=== PATIENT | male | born 1975 | race Caucasian/White ===

== ENCOUNTER 2022-05-21 06:27 | Day surgery (SDC) | payer MEDICAID, SELFPAY ==
--- NOTE | 2022-05-20 10:57 | HO.ANESPROP2 ---
Documented by User: Fatou Knox NP 05/20/22 11:00 HPI - Anesthesia Eval Consult details Narrative: 46yo M for Upper Endoscopy and Colonoscopy [facility] Past Medical History Medical History Colitis Diverticulitis Skin cancer Surgical History Surgical History H/O foot surgery Hx of colonoscopy Social History Social History Patient Tobacco Use Status: Never used Tobacco Use of substances other than those prescribed or required for medical reasons: No Are you DNR?: No Advance Directives: No Advance Directives Information Provided: Yes Recently lost weight without trying: No Nutrition Risks: No Nutritional Risk Meds Allergies Allergy/AdvReac Type Severity Reaction Status Date / Time No Known Allergies Allergy Verified 05/20/22 10:59 Home Medications Medication Instructions Recorded Confirmed Last Taken Type lisinopril 5 mg tablet 1 tab PO DAILY 05/20/22 05/20/22 Unknown History Exam Exam Date and Time: May 20, [id number] Assessment and Plan Assessment Anesthesia Assessment: Chart Reviewed Documented by User: Lolly Mendoza MD 05/21/22 07:31 [facility] Active Problems Active Problems: Increased BMI 46.6 Denies TAMIKO Hypertension Past Medical History Medical History Colitis Diverticulitis Skin cancer Family History Family history of problems with anesthesia: No Surgical History Surgical History H/O foot surgery Hx of colonoscopy History of Problems with Anesthesia: No Social History Social History Patient Tobacco Use Status: Never used Tobacco Use of substances other than those prescribed or required for medical reasons: No Are you DNR?: No Advance Directives: No Advance Directives Information Provided: Yes Recently lost weight without trying: No Nutrition Risks: No Nutritional Risk Meds Allergies Allergy/AdvReac Type Severity Reaction Status Date / Time No Known Allergies Allergy Verified 05/20/22 10:59 Home Medications Medication Instructions Recorded Confirmed Last Taken Type lisinopril 5 mg tablet 1 tab PO DAILY 05/20/22 05/20/22 Unknown History Exam Height,Weight and Vital Signs: Height 5 ft 5 in Weight 127.006 kg Vital Signs Temp Pulse Resp BP Pulse Ox O2 Del Method 05/21/22 06:42 97.7 F 64 16 140/82 H 96 Room Air Airway Mallampati Class: III TM Dist: >3cm Neck ROM: Full Loose/Missing/Broken Teeth: No (Denies broken, loose, missing teeth) Heart: RRR Lungs: CTAB Assessment and Plan Assessment Anesthesia Assessment: Anesthesia Plan Discussed Final Anesthetic Review Family History of Problems with Anesthesia: No History of Problems with Anesthesia: No NPO: Yes ASA Class: III Final Preanesthetic Review: No Changes in Pt Med Stat, Meds/Allgs Chart Reviewed, Consent Obtained/Reviewed and Anes Risks/Benef Reviewed Patient Risk: Intermediate Procedure Risk: Low Assessment/Block/Sedation in SS: Assess/Block/Sedation-SS Anesthetic Plan Anesthetic Plan: MAC: Disposition: Standard PACU
[2022-05-21 06:36] VITALS: BMI 46.5
[2022-05-21 06:42] VITALS: BP 140/82; PULSE 64; RESP 16; TEMP 36.5; O2SAT 96
[2022-05-21] MEDS: Lactated Ringers 1,000 ML 100 ML IVCONT (06:58)
[2022-05-21 08:25] VITALS: BP 109/53; PULSE 65; RESP 16; TEMP 36.9; O2SAT 96
--- NOTE | 2022-05-21 08:34 | P.BOP_ITS ---
Brief Operative Note Date of Service: 05/21/22 Pre-op diagnosis: Change in BM's Post-op diagnosis: other (Polyp, R/O proctitis) Procedure: Colonoscopy to the cecum and TI with bx/removal of polyp, and biopsies Surgeon: Onofre Blount Anesthesia: MAC Was an [employer] used for this Procedure?: No Estimated blood loss (mL): 2.0 Pathology: other (A. Proximal ascending colon polyp B. Ascending colon C. Descending colon D. Distal rectum) Condition: stable Disposition: PACU
[2022-05-21 08:40] VITALS: BP 115/74; PULSE 62; RESP 18; TEMP 36.6; O2SAT 98
--- NOTE | 2022-05-21 11:08 | OP_ITS ---
05/21/2022 SURGEON: Onofre Blount MD INDICATIONS: The patient presents for evaluation of change in bowel habits with associated rectal urgency and fecal soiling. Full consent has been obtained from him for this, including risks of bleeding and perforation. PREOPERATIVE DIAGNOSIS: Change in bowel habits with rectal urgency and fecal soiling. POSTOPERATIVE DIAGNOSIS: PROCEDURE PERFORMED: Colonoscopy to the cecum and terminal ileum with biopsy and removal of polyp and biopsies. ESTIMATED BLOOD LOSS: COMPLICATIONS: ANESTHESIA: Monitored anesthesia care. ASSISTANTS: SPECIMENS: POSTOPERATIVE DIAGNOSES: Change in bowel habits with rectal urgency and fecal soiling, colon polyp, diverticulosis, and small internal hemorrhoids, rule out microscopic colitis, rule out proctitis. DESCRIPTION OF PROCEDURE: The patient was placed in the left lateral decubitus position. The digital rectal exam revealed no abnormalities nor perianal disease. The Olympus video pediatric colonoscope was entered into the rectum and advanced easily to the cecum. Once in the cecum, I did identify a normal-appearing cecal pouch with appendiceal orifice and a normal-appearing ileocecal valve. The terminal ileum was cannulated and appeared normal. The scope was withdrawn back in the colon. The entire cecum and ileocecal valve appeared normal. The scope was slowly withdrawn assessing all mucosal surfaces carefully. Preparation was excellent. In the proximal ascending colon was an approximately 3 mm polyp which was biopsied and completely removed with a cold biopsy forceps. I did not visualize any other polyps, colitis, nor angiodysplasia. Random biopsies were obtained in the ascending and descending colon. There was a mild amount of sigmoid diverticulosis. In the rectum, the scope was retroflexed visualizing some small internal hemorrhoids as well as approximately 2 cm of some erythematous mucosa, although without definitive proctitis. The mucosa in this area was minimally friable. Biopsies were obtained from the distal rectum. The majority of the rectal mucosa appeared normal. The scope was straightened and withdrawn from the patient. He tolerated the procedure well and was returned to the recovery area in stable condition. IMPRESSION: 1. Colon polyp. 2. Diverticulosis. 3. Rule out microscopic colitis. 4. Rule out proctitis. 5. Small internal hemorrhoids. PLAN: The results of the biopsies will be checked. At this point, his bowel pattern is essentially a normal bowel movement each morning and then the remainder of the day he has some episodes of some urgency and small amounts of fecal soiling. He did start 1 imodium each morning, which has helped somewhat. I will tell him to take a second imodium later in the day to see if that helps. If not, then we could try some topical treatment with either a mesalamine suppository or suppository with hydrocortisone. He will be seen in followup. He was advised not to use any aspirin or NSAIDS for 1 week. MD LUCILA John/JOSE / [id number] MTDD
== END 2022-05-21 09:05 | disposition home or self-care (01) ==
PROVIDERS: PCP Physician Assistant Medical; Visit Provider Internal Medicine
PROC: 0DJD8ZZ Inspection of Lower Intestinal Tract, Via Natural or Artificial Opening Endoscopic (ICD-10-PCS; CPT 45378; principal; 2022-05-21 07:30)
DX: R19.4 Change in bowel habit (principal); R15.1 Fecal smearing; R15.2 Fecal urgency; D12.2 Benign neoplasm of ascending colon; K57.30 Diverticulosis of large intestine without perforation or abscess without bleeding; K64.8 Other hemorrhoids; I10 Essential (primary) hypertension; Z79.899 Other long term (current) drug therapy; Z85.828 Personal history of other malignant neoplasm of skin
CPT/HCPCS: 45380; 88305